=== PATIENT | male | born 1980 | race Caucasian/White ===

== ENCOUNTER 2020-09-17 10:42 | Outpatient (CLI) | payer SELFPAY ==
[2020-09-18 09:14] LABS: Chol/HDL Ratio 3.12 %
== END 2020-09-17 10:43 | disposition home or self-care (01) ==
LOC: LAB 10:42
PROVIDERS: ATTEND Internal Medicine
DX: E11.9 Type 2 diabetes mellitus without complications (principal); E78.5 Hyperlipidemia, unspecified
CPT/HCPCS: 36415; 80061; 83036